=== PATIENT | male | born 1990 | race Caucasian/White ===

== ENCOUNTER 2016-11-12 20:30 | Emergency (ER) | payer OTHER ==
[~2016-11-12] VITALS: Ht 188 cm; Wt 82.0 kg
[2016-11-12 20:31] VITALS: Ht 188 cm; Wt 82.0 kg
--- NOTE | 2016-11-12 20:52 | ERD ---
ER Documentation Chief Complaint Date/Time DATE: 11/12/16 TIME: 20:51 Chief Complaint bib ra/lapd for medical clearance for booking for htn and urinary retention HPI This 26-year-old male who is here for booking. The patient was in residential and says when he gets nervous is she system shows tachycardia tachypnea P. Patient' s Pingel since Monday. She is nervous Bars convex. The patient says he just voided prior to arrival to the ER. He says his urinary retention problem is now resolved. He has no other complaints ROS All systems reviewed and are negative except as per history of present illness. Allergies Allergies: Coded Allergies: ibuprofen (Verified Allergy, Unknown, 11/12/16) FmHx Family History: No coronary disease Physical Exam Vitals Vital Signs Date Time Temp Pulse Resp B/P Pulse Ox O2 Delivery O2 Flow Rate FiO2 11/12/16 20:31 99.1 69 18 139/82 98 Physical Exam Const: Well-developed, well-nourished Head: Atraumatic, normocephalic Eyes: Normal Conjunctiva, PERRLA, EOMI, normal sclera, no nystagmus ENT: Normal External Ears, Nose and Mouth, moist mucus membranes. Neck: Full range of motion. No meningismus, no lymphadenopathy. Resp: Clear to auscultation bilaterally, no wheezing, rhonchi, rales Cardio: Regular rate and rhythm, no murmurs, S1 S2 present Abd: Soft, non tender x 4, non distended. Normal bowel sounds, no guarding or rebound, no pulsitile abdominal masses or bruits Skin: No petechiae or rashes, no ecchymosis , no maculopapular rash Back: No midline or flank tenderness Ext: No cyanosis, or edema, FROM x 4, normal inspection, neurovascularly intact x 4 Neur: Awake and alert, STR 5/5 x 4, sensation intact x 4, no focal findings, cerebellum intact Psych: Normal Mood and Affect Departure Diagnosis: Primary Impression: Encounter for medical clearance for patient hold Condition: Stable Patient Instructions: Medical Clearance For Psych Admission Referrals: NO PRIMARY,CARE PHYSICIAN (PCP) CITLALLI ALMANZAR DO Nov 12, 2016 20:52
== END 2016-11-12 20:50 | disposition home or self-care (01) ==
LOC: E/R 20:30
DX: Z02.89 Encounter for other administrative examinations (principal)
CPT/HCPCS: 99282

== ENCOUNTER 2017-07-13 11:51 | Day surgery (SDC) | END 2017-07-13 17:07 | disposition home or self-care (01) ==

== ENCOUNTER 2017-07-31 22:41 | Emergency (ER) | END 2017-08-01 01:48 | disposition left against medical advice (07) ==